=== PATIENT | male | born 1960 | race Two or more races ===

== ENCOUNTER 2024-02-15 11:05 | Emergency (ER) | payer OTHER ==
[~2024-02-15] VITALS: Ht 180.3 cm; Wt 97.4 kg
[2024-02-15] MEDS: HYDROcodone-ACET 7.5/325MG TAB PO ONE (11:51)
[2024-02-15 11:54] VITALS: BP 146/86; PULSE 91; RESP 22; TEMP 97.2; O2SAT 95
[2024-02-15 11:54] LABS: Eosinophils # (auto) 0.3 10 ^3/uL (0-0.8); Hematocrit 51.3 % (41.0-53.0); Hemoglobin 17.7 g/dL (13.5-17.5); Red Cell Distribution Width 13.6 % (11.8-14.3)
[2024-02-15 11:56] LABS: Basophils # (auto) 0.2 10 ^3/uL (0-0.2); Basophils % (auto) 1.4 % (0.0-2.0); Eosinophils % (auto) 2.1 % (0.0-7.0); Lymphocytes # (auto) 4.6 10 ^3/uL (0.4-5.4); Mean Corpuscular Hemoglobin 31.4 pg (28.0-32.0); Mean Corpuscular Hgb Conc. 34.5 g/dL (32.0-36.0); Mean Corpuscular Volume 91.1 fL (80.0-100.0); Monocytes # (auto) 1.1 10 ^3/uL (0-1.3); Monocytes % (auto) 8.6 % (0.0-12.0); Neutrophils # (auto) 6.9 10 ^3/uL (1.6-8.6); Neutrophils % (auto) 52.9 % (37.0-80.0); Platelet Count (auto) 279 10^3/uL (140-450); Red Blood Cells 5.63 10^6/uL (4.5-5.90)
[2024-02-15 12:10] LABS: Anion Gap 8 (5-15); Carbon Dioxide 24 mmol/L (20-31); Chloride 104 mmol/L (98-107); Potassium 4.3 mmol/L (3.5-5.1); Sodium 136 mmol/L (136-145)
[2024-02-15 12:11] LABS: Calcium 10.4 mg/dL (8.7-10.4)
[2024-02-15 12:16] LABS: BUN/Creatinine Ratio 12.6 (10.0-20.0); Blood Urea Nitrogen 12 mg/dL (9-23); Glucose 125 mg/dL (74-106)
[2024-02-15 12:57] LABS: Urine Bacteria None Seen /hpf (None Seen)
[2024-02-15 13:16] LABS: Urine Blood Negative /uL (Negative); Urine Clarity Clear (Clear); Urine Color Yellow (Yellow); Urine Hyaline Cast FEW /lpf (0 - 2); Urine Mucus FEW (None Seen); Urine Protein, UAD 1+ (Negative); Urine Specific Gravity 1.022 (1.001-1.035); Urine Urobilinogen Normal (Negative); Urine WBC 1 /hpf (0 - 3)
[2024-02-15 13:24] LABS: Amphetamine Screen, Urine Pos (NEGATIVE); Benzodiazephine Screen, Urine Neg (NEGATIVE)
[2024-02-15 13:25] LABS: Barbiturate Scree,Urine Neg (NEGATIVE); Cannabinoid Screen, Urine Pos (NEGATIVE); Cocaine Screen, Urine Pos (NEGATIVE); Opiate Scree,Urine Neg (NEGATIVE); Phencyclidine Screen, Urine Neg (NEGATIVE)
[2024-02-15] MEDS ORDERED: MELO15TA29 PO (14:02)
[2024-02-15] MEDS ORDERED: CYCL-837 PO (14:02)
[2024-02-15] MEDS ORDERED: PRED20TA2 PO (14:02)
== END 2024-02-15 14:11 | disposition left against medical advice (07) ==
LOC: ER 11:05
DX: M54.50 Low back pain, unspecified (principal); R51.9 Headache, unspecified; Z79.899 Other long term (current) drug therapy; W19.XXXA Unspecified fall, initial encounter; Y93.89 Activity, other specified; Y92.096 Garden or yard of other non-institutional residence as the place of occurrence of the external cause; Y99.8 Other external cause status
CPT/HCPCS: 36415; 70450; 72131; 80048; 80307; 81001; 85025